=== PATIENT | male | born 1950 | race Caucasian/White ===

== ENCOUNTER → 2018-07-14 | Day surgery (SDC) | payer MEDICARE ==
[2018-07-12 11:46] LABS: BASOPHILS # (AUTO) 0.1 (0.0-0.1); BASOPHILS % 0.6 % (0.0-1.0); EOSINOPHILS # (AUTO) 0.4 (0.0-0.4); EOSINOPHILS % 3.9 % (0.0-6.0); HEMOGLOBIN 16.1 g/dL (14.0-18.0); LYMPHOCYTES % 18.7 % (18.0-39.1); MEAN CORPUSCULAR HEMOGLOBIN 28.1 pg (28-32); MEAN CORPUSCULAR HGB CONC 32.9 g/dL (31-35); MEAN CORPUSCULAR VOLUME 85.5 fL (81-99); MONOCYTES # (AUTO) 1.1 (0.2-0.8); MONOCYTES % 10.2 % (4.4-11.3); NEUTROPHILS % 65.9 % (38.7-80.0); PLATELET COUNT 219 x10e3/uL (140-360); RED BLOOD COUNT 5.73 x10e6/uL (4.3-5.7); RED CELL DISTRIBUTION WIDTH 14.2 % (11.7-14.4)
[~2018-07-14] MED LIST: AMLODIPINE BESY10 MG PO; ATORVASTATIN CA20 MG PO; BYSTOLIC10 MG PO; FENOFIBRATE145 MG; FENTANYL CITRATE/PF 100MCG/2 ML INJ ONE; FUROSEMIDE40 MG PO; GABAPENTIN300 MG PO; HYOSCYAMINE SULFATE 0.5 MG/ML AMP ONE; JANUVIA100 MG PO; LANTUS 3ML100 UNITS/ SQ; MIDAZOLAM HCL 2 MG/2 ML VIAL ONE; OMEPRAZOLE40 MG PO; PROPOFOL IV EMULSION 10 MG/ML 50 ML VIAL ONE; RANITIDINE HCL150 M1 PO; TAMSULOSIN HCL0.4 MG PO
--- NOTE | 2018-07-14 13:03 | Operative Report ---
DATE OF PROCEDURE: July 14, 2018 REFERRING PHYSICIAN: Dr. Artem Velasquez. PROCEDURES PERFORMED 1. Esophagogastroduodenoscopy with esophageal dilatation and biopsies. 2. Colonoscopy with polypectomy. INDICATIONS FOR EGD: Dysphagia. INDICATIONS FOR COLONOSCOPY: Colorectal cancer screening. MEDICATION: Patient was done under MAC, please see anesthesiologist's note. PROCEDURE: With the patient in left lateral decubitus position, flexible fiberoptic Olympus gastroscope was introduced into the esophagus under direct visualization without any difficulty. The esophagus appeared to be within normal limits. There was a mild stricture noted at the GE junction that was dilated to size 52-[place]. The scope was then advanced with ease into the stomach. Mucosa overlying the antrum revealed some patchy areas of erythema and biopsies were obtained and sent to stain for H. pylori. Multiple hyperplastic-appearing polyps were noted in the body of the stomach and some were partially excised with the cold biopsy forceps. The pylorus was of normal contour and shape. It was intubated with ease and the scope was advanced all the way to the second portion of the duodenum. The scope was then withdrawn slowly. Mucosa overlying the proximal second portion and the duodenal bulb appeared to be within normal limits. The scope was then withdrawn back into the stomach and retroflexed and mucosa overlying the fundus and the cardia appeared to be within normal limits. The scope was then straightened out and was subsequently withdrawn. Patient tolerated the procedure well. IMPRESSION 1. Esophageal stricture, dilated to size 52-[place]. 2. Gastritis, biopsied. Biopsy sent to stain for Helicobacter pylori. 3. Gastric polyps, body, hyperplastic-appearing, some partially excised with the cold biopsy forceps. PLAN: Followup histology. Continue omeprazole 40 mg 1 p.o. q.a.m. a.c. Patient was then turned around and after adequate lubrication of the anal canal, a flexible fiberoptic Olympus colonoscope was inserted into the rectum with ease and advanced all the way to the cecum. Prep overall was suboptimal. The scope was then withdrawn slowly and whatever was visualized, the mucosa overlying the cecum appeared to be within normal limits. Diverticular disease was noted to be scattered pretty much throughout, but more prominent in the left colon. One polyp was snared from the ascending colon, one polyp was snared from the transverse colon, and one polyp was hot biopsied from the sigmoid. The scope was then retroflexed into the distal rectum and small internal hemorrhoids were noted, none of which was actively bleeding. The scope was then straightened out and was subsequently withdrawn. Patient tolerated the procedure well. IMPRESSION 1. Suboptimal prep. 2. Pandiverticulosis. 3. Ascending colon polyp, snared. 4. Transverse colon polyp, snared. 5. Sigmoid colon polyp, hot biopsied. 6. Internal hemorrhoids, none actively bleeding. PLAN: Follow up histology. Initiate high-fiber, low-fat diet. Initiate high-fiber supplement. Patient will need a followup colonoscopy in 3 to 5 years. Job#: [id number] VAS cc:DR ARTEM VELASQUEZ
--- OUTSIDE RECORDS SUMMARY | 2018-09-02 01:57 | XMS REPORT | Clinical Summary ---
Author Author [facility] Organization [facility] Address Unknown Phone Unavailable Care Team Providers Care Front Office Agent Name Role Phone Polina Nunn MD PCP Allergies Active Allergy Reactions Severity Noted Date Comments Penicillins 07/05/2018 Current Medications No known medications Active Problems No known active problems Encounters Date Type Specialty Care Team Description 07/05/2018 Office Visit [facility] Joe Gongora, Osteoarthritis of MD carpometacarpal joints of both thumbs, unspecified osteoarthritis type (Primary Dx) 07/02/2018 Orders Only Ortho Sports Medicine Clayton Day MA Bilateral hand pain (Primary Dx) after 07/13/2017 Family History Medical History Relation Name Comments Cancer Father Diabetes Father Diabetes Mother Heart disease Mother Relation Name Status Comments Father Mother Social History Tobacco Use Types Packs/Day Years Used Date Never Smoker Smokeless Tobacco: Never Used Alcohol Use Drinks/Week oz/Week Comments No Sex Assigned at Date Recorded Not on file Last Filed Vital Signs Not on file Plan of Treatment Date Type Specialty Care Team Description 09/06/2018 Office Visit [facility] Joe Gongora MD [address] [facility] [address] [place] [address] [phone] Health Maintenance Due Date Last Done Comments COLON CANCER SCREENING 1998 SHINGRIX VACCINE (#1) 1998 ZOSTER VACCINE 2008 PNEUMOCOCCAL 2013 POLYSACCHARIDE VACCINE AGE 65 AND OVER PNEUMOCOCCAL-13 2013 INFLUENZA VACCINE 06/30/2018 Procedures Procedure Name Priority Date/Time Associated Diagnosis Comments XR HANDS 3 VW BILATERAL Routine 07/05/2018 Bilateral hand pain Results for this 9:51 AM CDT procedure are in the results section. [place] ARTHROCENTESIS Routine 07/05/2018 Osteoarthritis of Results for this ASPIR&/INJ SMALL JT/BURSA 9:40 AM CDT carpometacarpal joints of procedure are in the W/O US both thumbs, unspecified results section. osteoarthritis type after 07/13/2017 Results * XR Hands 3 Vw Bilateral (07/05/2018 9:51 AM) Narrative Performed At [facility] Xrays: The x-rays were ordered and personally reviewed by me. 3 views of the bilateral hands Reason for exam: Bilateral hand pain Impression: Bilateral thumbs with severe CMC arthritis Performing Organization [facility] Phone [facility] [phone] [place] [address] * Small Joint Arthrocentesis (07/05/2018 9:40 AM) Narrative Performed At Joe Gongora MD 07/05/2018 10:21 AM Small Joint Arthrocentesis Procedure Details Location: thumb - Bilateral thumb CMC Right side: Right thumb medications administered: 6 mg betamethasone acetate & sodium phosphate 6 mg/mL; 0.5 mL lidocaine 10 mg/mL (1 %) Patient tolerance: patient tolerated the procedure well with no immediate complications Left side: Left thumb medications administered: 6 mg betamethasone acetate & sodium phosphate 6 mg/mL; 0.5 mL lidocaine 10 mg/mL (1 %) Patient tolerance: patient tolerated the procedure well with no immediate complications after 07/13/2017 Insurance Payer Benefit Subscriber ID Type Phone Address Plan / Group HUMANA HUMANA xxxxxxxxx PPO [place] [address]
== END | disposition home or self-care (01) ==
LOC: OR 07:16
PROVIDERS: ATTEND Internal Medicine Gastroenterology
DX: Z12.11 Encounter for screening for malignant neoplasm of colon (principal); K63.5 Polyp of colon; K31.7 Polyp of stomach and duodenum; K29.70 Gastritis, unspecified, without bleeding; K22.2 Esophageal obstruction; K57.30 Diverticulosis of large intestine without perforation or abscess without bleeding; K64.8 Other hemorrhoids; R00.1 Bradycardia, unspecified; E11.22 Type 2 diabetes mellitus with diabetic chronic kidney disease; I12.9 Hypertensive chronic kidney disease with stage 1 through stage 4 chronic kidney disease, or unspecified chronic kidney disease; N18.3 Chronic kidney disease, stage 3 (moderate); E78.00 Pure hypercholesterolemia, unspecified; Z88.0 Allergy status to penicillin; Z01.810 Encounter for preprocedural cardiovascular examination; Z01.812 Encounter for preprocedural laboratory examination; Z68.32 Body mass index [BMI] 32.0-32.9, adult; Z96.659 Presence of unspecified artificial knee joint
CPT/HCPCS: 36415 ×2; 43239; 43450; 45384; 45385; 82948; 85025; 88305; 88312; 93005; J1980; J2250; 45378

== ENCOUNTER → 2022-09-22 | Day surgery (SDC) | payer MEDICARE ==
[2022-09-17 10:27] LABS: BASOPHILS # (AUTO) 0.1 (0.0-0.1); BASOPHILS % 0.8 % (0.0-1.0); EOSINOPHILS # (AUTO) 0.7 (0.0-0.4); EOSINOPHILS % 7.4 % (0.0-6.0); HEMOGLOBIN 12.6 g/dL (14.0-18.0); LYMPHOCYTES # (AUTO) 1.4 (1.0-3.2); LYMPHOCYTES % 14.9 % (18.0-39.1); MEAN CORPUSCULAR HEMOGLOBIN 26.9 pg (28-32); MEAN CORPUSCULAR VOLUME 89.7 fL (81-99); MONOCYTES # (AUTO) 1.1 (0.2-0.8); NEUTROPHILS # (AUTO) 5.9 (2.1-6.9); NEUTROPHILS % 64.7 % (38.7-80.0); PLATELET COUNT 267 x10e3/uL (140-360); RED BLOOD COUNT 4.68 x10e6/uL (4.3-5.7); RED CELL DISTRIBUTION WIDTH 14.3 % (11.7-14.4)
[2022-09-17 10:37] LABS: INR 0.82; PROTHROMBIN TIME 12.1 seconds (11.9-14.5)
[2022-09-17 10:47] LABS: ANION GAP 13.1 mmol/L (8-16); CALCIUM 9.1 mg/dL (8.4-10.2); CREATININE, SERUM 3.08 mg/dL (0.72-1.25); POTASSIUM 5.1 mmol/L (3.5-5.1)
[~2022-09-22] MED LIST changes: +ALOGLIPTIN6.25 MG PO; +CARVEDILOL12.5 MG PO; +CRANBERRY400 MG PO; -FENTANYL CITRATE/PF 100MCG/2 ML INJ ONE; +FISH OIL 1,001000 M1 PO; +HYDRALAZINE HCL25 MG PO; -HYOSCYAMINE SULFATE 0.5 MG/ML AMP ONE; -MIDAZOLAM HCL 2 MG/2 ML VIAL ONE; +MULTI-VITAMIN1 EACH PO; +NOVOLOG100 UNIT/1 SC; -PROPOFOL IV EMULSION 10 MG/ML 50 ML VIAL ONE; +STOOL SOFTENER50 MG PO; +VITAMIN D350 MCG PO
[2022-09-22 14:05] VITALS: BP 156/80
== END | disposition home or self-care (01) ==
LOC: OR 09:41
PROVIDERS: ATTEND Internal Medicine Gastroenterology
DX: K22.2 Esophageal obstruction (principal); Z86.010 Personal history of colon polyps; K31.7 Polyp of stomach and duodenum; K29.50 Unspecified chronic gastritis without bleeding; K25.9 Gastric ulcer, unspecified as acute or chronic, without hemorrhage or perforation; K26.9 Duodenal ulcer, unspecified as acute or chronic, without hemorrhage or perforation; K20.90 Esophagitis, unspecified without bleeding; K21.9 Gastro-esophageal reflux disease without esophagitis; K57.30 Diverticulosis of large intestine without perforation or abscess without bleeding; K64.8 Other hemorrhoids; Z71.3 Dietary counseling and surveillance; E11.22 Type 2 diabetes mellitus with diabetic chronic kidney disease; I12.0 Hypertensive chronic kidney disease with stage 5 chronic kidney disease or end stage renal disease; N18.6 End stage renal disease; Z71.89 Other specified counseling; E78.00 Pure hypercholesterolemia, unspecified; Z88.0 Allergy status to penicillin; Z88.6 Allergy status to analgesic agent; Z01.810 Encounter for preprocedural cardiovascular examination; Z01.812 Encounter for preprocedural laboratory examination; Z79.4 Long term (current) use of insulin; Z79.899 Other long term (current) drug therapy; Z68.31 Body mass index [BMI] 31.0-31.9, adult; Z85.528 Personal history of other malignant neoplasm of kidney
CPT/HCPCS: 36415 ×2; 43239; 43450; 45378; 80048; 82948; 85025; 85610; 85730; 88305; 88342; 93005; C9113